=== PATIENT | female | born 1975 | race African-American/Black ===

== ENCOUNTER 2018-01-25 13:45 | Emergency (ER) | payer OTHER ==
--- NOTE | 2018-01-25 14:03 | PDOC ---
Rapid Medical Evaluation Time Seen by Provider: 01/25/18 13:59 Medical Evaluation: Allergies Allergy/AdvReac Type Severity Reaction Status Date / Time No Known Allergies Allergy Verified 11/01/12 20:50 01/25/18 14:00 I have performed a brief in-person evaluation of this patient. The patient presents with a chief complaint of: lower back pain Pertinent physical exam findings: TTP generalized lower back. I have ordered the following: urine The patient will proceed to the ED for further evaluation. Discharge Disposition - Diagnosis Back pain Qualifiers: Back pain location: low back pain - Referrals Referrals: Tad Dawn MD [Primary Care Provider] - - Patient Instructions - Post Discharge Activity
[2018-01-25 14:06] VITALS: BP 116/70; PULSE 77; TEMP 99.2; BMI 35.9
--- NOTE | 2018-01-25 14:36 | PDOC ---
History of Present Illness - General Chief Complaint: Pain Stated Complaint: BACK PAIN Time Seen by Provider: 01/25/18 13:59 - History of Present Illness Initial Comments: 01/25/18 14:33 42-year-old female without comorbidities presents for evaluation of lower back pain and left posterior lateral leg radicular symptoms. She denies loss of bowel bladder function or saddle paresthesia. No systemic symptoms. Past History - Past Medical History Allergies/Adverse Reactions: Allergies Allergy/AdvReac Type Severity Reaction Status Date / Time No Known Allergies Allergy Verified 01/25/18 14:00 Home Medications: Ambulatory Orders Cyclobenzaprine HCl [Flexeril 10 mg] 10 mg PO HS PRN #10 tablet 01/25/18 Methylprednisolone [Medrol Dose David] 4 mg PO ASDIR #21 tablet 01/25/18 COPD: No Other medical history: Chronic back pain - Reproductive History (#): 1 Para: 0 Cervical CA: No Dysfunctional Uterine Bleeding: No Ectopic : No Endometrial CA: No Polycystic Ovaries: No Therapeutic (s) & number: No Tubal Ligation: No Spontaneous : 1 - Suicide/Smoking/Psychosocial Hx Smoking Status: No Smoking History: Current some day smoker Have you smoked in the past 12 months: Yes Number of Cigarettes Smoked Daily: 0 Information on smoking cessation initiated: Yes 'Breaking Loose' booklet given: 01/25/18 Hx Alcohol Use: No Drug/Substance Use Hx: No Substance Use Type: Marijuana Review of Systems - Review of Systems Constitutional: No: Fever Musculoskeletal: Yes: Back Pain *Physical Exam - Vital Signs Last Vital Signs Temp Pulse Resp BP Pulse Ox 99.2 F 77 20 116/70 100 01/25/18 14:01 01/25/18 14:01 01/25/18 14:01 01/25/18 14:01 01/25/18 14:01 - Physical Exam Comments: 01/25/18 14:34 Lumbar spine skin color and temperature are normal range of motion is slightly decreased secondary to pain and stiffness. She has no midline tenderness mild left sided paralumbar musculature spasm and tenderness. 5 out of 5 strength in bilateral lower extremities without gross sensorimotor deficits should leg raise test positive on the left negative on the right. She's neurovascularly intact. Thighs and calves are soft and nontender. *DC/Admit/Observation/Transfer Diagnosis at time of Disposition: Lumbar radicular pain Back pain Qualifiers: Back pain location: low back pain - Discharge Dispostion Disposition: HOME Condition at time of disposition: Stable Decision to Admit order: No - Prescriptions Prescriptions: Cyclobenzaprine HCl [Flexeril 10 mg] 10 mg PO HS PRN #10 tablet PRN Reason: Muscle Spasms Methylprednisolone [Medrol Dose David] 4 mg PO ASDIR #21 tablet - Referrals Referrals: Tad Dawn MD [Primary Care Provider] - Neil Cobian MD [Staff Physician] - - Patient Instructions Printed Discharge Instructions: Lumbar Radiculopathy, DI for Lumbar Radiculopathy Additional Instructions: Please take the steroid pack as directed. No Advil Motrin Aleve or ibuprofen while on the steroid pack. The muscle relaxers one tablet before bedtime which will make you sleepy. Return to the emergency room should symptoms worsen or go unresolved and follow-up with spine surgery in 2-3 days for further evaluation and treatment options. - Post Discharge Activity
[2018-01-25 15:24] LABS: URINE APPEARANCE CLEAR; URINE BILIRUBIN NEGATIVE (<2.0 mg/dL); URINE COLOR YELLOW; URINE GLUCOSE (UA) NEGATIVE (NEGATIVE); URINE KETONE NEGATIVE (NEGATIVE); URINE LEUK ESTERASE NEGATIVE (NEGATIVE); URINE NITRITE NEGATIVE (NEGATIVE); URINE PROTEIN NEGATIVE (NEGATIVE); URINE UROBILINOGEN NEGATIVE mg/dL (0.2-1.0)
[2018-01-25 15:28] LABS: HCG,QUALITATIVE URINE NEGATIVE
== END 2018-01-25 14:42 | disposition home or self-care (01) ==
LOC: JERFT 13:45
DX: M54.16 Radiculopathy, lumbar region (principal); F17.210 Nicotine dependence, cigarettes, uncomplicated; G89.29 Other chronic pain
CPT/HCPCS: 81003; 84703; 87086; 99281-25

== ENCOUNTER 2018-02-27 09:42 | Emergency (ER) | payer OTHER ==
[2018-02-27 10:08] VITALS: BP 128/75; PULSE 76; TEMP 98.5; BMI 35.6
--- NOTE | 2018-02-27 11:01 | PDOC ---
History of Present Illness - General Chief Complaint: Cold Symptoms Stated Complaint: COLD SYMPTOMS Time Seen by Provider: 02/27/18 10:31 History Source: Patient Exam Limitations: Clinical Condition - History of Present Illness Initial Comments: 02/27/18 11:02 Patient with no significant past medication present with complaint of one-week history of dry cough, nasal congestion, runny nose and mucus production. Patient denies fever, chills. Patient denies any other symptoms Timing/Duration: 1 week Past History - Past Medical History Allergies/Adverse Reactions: Allergies Allergy/AdvReac Type Severity Reaction Status Date / Time No Known Allergies Allergy Verified 01/25/18 14:00 Home Medications: Ambulatory Orders Benzonatate [Tessalon Pearls -] 100 mg PO TID PRN #21 capsule 02/27/18 Ipratropium [place] 2 spray NS BID PRN #1 spray 02/27/18 Methylprednisolone [Medrol Dose David] 4 mg PO ASDIR #21 tablet 02/27/18 Asthma: Yes COPD: No Hypercholesterolemia: Yes Lung CA: No - Reproductive History (#): 1 Para: 0 Cervical CA: No Dysfunctional Uterine Bleeding: No Ectopic : No Endometrial CA: No Polycystic Ovaries: No Therapeutic (s) & number: No Tubal Ligation: No Spontaneous : 1 - Immunization History Immunization Up to Date: No - Suicide/Smoking/Psychosocial Hx Smoking Status: No Smoking History: Never smoked Have you smoked in the past 12 months: No Number of Cigarettes Smoked Daily: 0 Information on smoking cessation initiated: No 'Breaking Loose' booklet given: 01/25/18 Hx Alcohol Use: No Drug/Substance Use Hx: No Substance Use Type: Marijuana Review of Systems - Review of Systems Able to Perform ROS?: Yes Is the patient limited Maltese proficient: No Constitutional: No: Chills, Fever, Malaise HEENTM: Yes: Symptoms Reported, See HPI, Nose Congestion. No: Eye Pain, Blurred Vision, Tearing, Recent change in vision, Double Vision, Cataracts, Ear Pain, Ocular Prothesis, Ear Discharge, Nose Pain, Tinnitus, Nose Bleeding, Hearing Loss, Throat Pain, Throat Swelling, Mouth Pain, Dental Problems, Difficulty Swallowing, Mouth Swelling, Other Respiratory: Yes: Symptoms reported, See HPI, Cough. No: Orthopnea, Shortness of Breath, SOB with Exertion, SOB at Rest, Stridor, Wheezing, Productive cough, Hemoptysis, Other Cardiac (ROS): No: Symptoms Reported, See HPI, Chest Pain, Edema, Irregular Heart Rate, Lightheadedness, Palpitations, Syncope, Chest Tightness, Other ABD/GI: No: Symptoms Reported, See HPI, Abdominal Distended, Abd. Pain w/ defecation, Blood Streaked Bowels, Constipated, Diarrhea, Difficulty Swallowing , Nausea, Poor Appetite, Poor Fluid Intake, Rectal Bleeding, Vomiting, Indigestion, Abdominal cramping, Tarry Stools, Other All Other Systems: Reviewed and Negative *Physical Exam - Vital Signs Last Vital Signs Temp Pulse Resp BP Pulse Ox 98.5 F 76 18 128/75 98 02/27/18 10:06 02/27/18 10:06 02/27/18 10:06 02/27/18 10:06 02/27/18 10:06 - Physical Exam Comments: 02/27/18 11:04 GENERAL: Well developed, well nourished. Awake and alert. No acute distress. HEENT: Normocephalic, atraumatic. PERRLA, EOMI. No conjunctival pallor. Sclera are non-icteric. Moist mucous membranes. Oropharynx is clear. NECK: Supple. Full ROM. CARDIOVASCULAR: Regular rate and rhythm. No murmurs, rubs, or gallops. Distal pulses are 2+ and symmetric. PULMONARY: No evidence of respiratory distress. Lungs clear to auscultation bilaterally. No wheezing, rales or rhonchi. ABDOMINAL: Soft. Non-tender. Non-distended. No rebound or guarding. No organomegaly. Normoactive bowel sounds. MUSCULOSKELETAL Normal range of motion at all joints. EXTREMITIES: No cyanosis. No clubbing. No edema. No calf tenderness. SKIN: Warm and dry. Normal capillary refill. No rashes. No jaundice. NEUROLOGICAL: Alert, awake, appropriate. Gait is normal without ataxia. PSYCHIATRIC: Cooperative. Good eye contact. Appropriate mood General Appearance: Yes: Nourished, Appropriately Dressed. No: Apparent Distress Moderate Sedation - Procedure Monitoring Vital Signs: Procedure Monitoring Vital Signs Temperature 98.5 F 02/27/18 10:06 Pulse Rate 76 02/27/18 10:06 Respiratory Rate 18 02/27/18 10:06 Blood Pressure 128/75 02/27/18 10:06 O2 Sat by Pulse Oximetry (%) 98 02/27/18 10:06 Medical Decision Making - Medical Decision Making 02/27/18 11:04 Patient with no significant past medication present with complaint of one-week history of cough, runny nose, nasal congestion and mucus production. Patient afebrile. Clinical exam unremarkable. Symptoms likely viral URI. Patient is stable for discharge with outpatient management of URI with Tessalon Perles medical pack and nasal spray with PCP follow-up *DC/Admit/Observation/Transfer Diagnosis at time of Disposition: Cough URI (upper respiratory infection) Qualifiers: URI type: unspecified URI Qualified Code(s): J06.9 - Acute upper respiratory infection, unspecified - Discharge Dispostion Disposition: HOME Condition at time of disposition: Stable Decision to Admit order: No - Prescriptions Prescriptions: Benzonatate [Tessalon Pearls -] 100 mg PO TID PRN #21 capsule PRN Reason: Cough Ipratropium [place] 2 spray NS BID PRN #1 spray PRN Reason: nasal congestion Methylprednisolone [Medrol Dose David] 4 mg PO ASDIR #21 tablet - Referrals Referrals: Tad Dawn MD [Primary Care Provider] - - Patient Instructions Printed Discharge Instructions: DI for Viral Upper Respiratory Infection -- Adult Additional Instructions: Take medication as prescribed. increase fluid intake. Follow-up with PCP - Post Discharge Activity
== END 2018-02-27 11:07 | disposition home or self-care (01) ==
LOC: JER 09:42
DX: J06.9 Acute upper respiratory infection, unspecified (principal); R05 Cough; J45.909 Unspecified asthma, uncomplicated
CPT/HCPCS: 99281-25

== ENCOUNTER 2018-03-19 15:06 | Emergency (ER) | payer OTHER ==
[2018-03-19 15:12] VITALS: TEMP 98.2; BMI 35.9
[2018-03-19 16:36] LABS: URINE APPEARANCE CLEAR; URINE BILIRUBIN NEGATIVE (<2.0 mg/dL); URINE COLOR YELLOW; URINE GLUCOSE (UA) NEGATIVE (NEGATIVE); URINE KETONE 1+ (NEGATIVE); URINE LEUK ESTERASE NEGATIVE (NEGATIVE); URINE NITRITE NEGATIVE (NEGATIVE); URINE PROTEIN NEGATIVE (NEGATIVE); URINE UROBILINOGEN NEGATIVE mg/dL (0.2-1.0)
--- NOTE | 2018-03-19 17:02 | PDOC ---
History of Present Illness - General Chief Complaint: Pain Stated Complaint: PELVIC PAIN Time Seen by Provider: 03/19/18 16:00 History Source: Patient Exam Limitations: No Limitations - History of Present Illness Travel History: No Initial Comments: 03/19/18 16:49 42-year-old female presents to ED with complaints of 3 days of lower abdominal cramping and light brown spotting yesterday. Patient states had an IUD placed 3 months ago and has not had her menses and denies any vaginal discharge, urinary complaints, fever, chills or upper abdominal pain, or nausea. Timing/Duration: reports: constant Quality: reports: mild, cramping Abdominal Pain Onset Location: reports: suprapubic Pain Radiation: reports: no radiation Activities at Onset: reports: none Aggravating Factors: improves with: None Alleviating Factors: improves with: None Past History - Travel Traveled outside of the country in the last 30 days: No - Past Medical History Allergies/Adverse Reactions: Allergies Allergy/AdvReac Type Severity Reaction Status Date / Time No Known Allergies Allergy Verified 03/19/18 15:12 Home Medications: Ambulatory Orders Benzonatate [Tessalon Pearls -] 100 mg PO TID PRN #21 capsule 02/27/18 Ipratropium [place] 2 spray NS BID PRN #1 spray 02/27/18 Methylprednisolone [Medrol Dose David] 4 mg PO ASDIR #21 tablet 02/27/18 Tramadol HCl 50 mg PO BID PRN #10 tablet MDD 2 03/19/18 Asthma: Yes COPD: No Hypercholesterolemia: Yes Lung CA: No - Reproductive History (#): 3 Para: 3 Cervical CA: No Dysfunctional Uterine Bleeding: No Ectopic : No Endometrial CA: No Polycystic Ovaries: No Therapeutic (s) & number: No Tubal Ligation: No Spontaneous : 0 - Immunization History Immunization Up to Date: No - Suicide/Smoking/Psychosocial Hx Smoking Status: No Smoking History: Never smoked Have you smoked in the past 12 months: No Number of Cigarettes Smoked Daily: 0 Information on smoking cessation initiated: No 'Breaking Loose' booklet given: 01/25/18 Hx Alcohol Use: No Drug/Substance Use Hx: No Substance Use Type: Marijuana Patient Lives Alone: No Lives with/in: spouse/SO Review of Systems - Review of Systems Able to Perform ROS?: Yes Constitutional: No: Symptoms Reported HEENTM: No: Symptoms Reported Respiratory: No: Symptoms reported Cardiac (ROS): No: Symptoms Reported ABD/GI: Yes: Abdominal cramping : Yes: Discharge Musculoskeletal: No: Symptoms Reported Integumentary: No: Symptoms Reported Neurological: No: Symptoms reported *Physical Exam - Vital Signs Last Vital Signs Temp Pulse Resp BP Pulse Ox 98.2 F 80 18 106/69 100 03/19/18 15:09 03/19/18 15:09 03/19/18 15:09 03/19/18 15:09 03/19/18 15:09 - Physical Exam General Appearance: Yes: Nourished, Appropriately Dressed. No: Apparent Distress HEENT: positive: EOMI. negative: Pale Conjunctivae Neck: positive: Normal Thyroid, Supple Female Pelvic Exam: positive: normal external exam. negative: discharge, vaginal bleeding Gastrointestinal/Abdominal: positive: Normal Bowel Sounds, Soft, Tenderness ( mild mid suprapubic). negative: Distended, Hernia, Mass Musculoskeletal: negative: CVA Tenderness Integumentary: positive: Normal Color, Warm, Moist Neurologic: positive: Motor Strength 5/5 (ambulatory) Moderate Sedation - Procedure Monitoring Vital Signs: Procedure Monitoring Vital Signs Temperature 98.2 F 03/19/18 15:09 Pulse Rate 80 03/19/18 15:09 Respiratory Rate 18 03/19/18 15:09 Blood Pressure 106/69 03/19/18 15:09 O2 Sat by Pulse Oximetry (%) 100 03/19/18 15:09 ED Treatment Course - ADDITIONAL ORDERS Additional order review: Laboratory Results 03/19/18 16:20 Urine Color Yellow Urine Appearance Clear Urine pH 5.0 Ur Specific [place] 1.026 Urine Protein Negative Urine Glucose (UA) Negative Urine Ketones 1+ H Urine Blood Negative Urine Nitrite Negative Urine Bilirubin Negative Urine Urobilinogen Negative Ur Leukocyte Esterase Negative - RADIOLOGY Radiology Studies Ordered: Category Date Time Status PELVIC / BLADDER US [US] Stat Ultrasound 03/19/18 16:04 Ordered TRANSVAGINAL ULTRASOUND US [US] Stat Ultrasound 03/19/18 16:04 Ordered Medical Decision Making - Medical Decision Making 03/19/18 17:09 Chief complaint: Suprapubic cramping brownish spotting for the past 3 days. Exam. Mild mid suprapubic tenderness no left or right suprapubic tenderness. No discharge. Plan: Urinalysis urine culture urine ultrasound to check for IUD placement since recently placed 03/19/18 17:47 Laboratory Tests 03/19/18 03/19/18 16:20 16:20 Urine Ketones 1+ H Urine Nitrite Negative Urine Bilirubin Negative Urine Urobilinogen Negative Ur Leukocyte Esterase Negative Urine HCG, Qual Negative 03/19/18 18:50 Ultrasound negative for acute findings. IUD shows proper placement patient will be given tramadol for discomfort and tramadol for discharge. Patient understands if symptoms continue greater than 5 days to return to the nearest emergency room.. *DC/Admit/Observation/Transfer Diagnosis at time of Disposition: Pelvic pain - Discharge Dispostion Disposition: HOME Condition at time of disposition: Good - Prescriptions Prescriptions: Tramadol HCl 50 mg PO BID PRN #10 tablet MDD 2 PRN Reason: Pain - Referrals - Patient Instructions Printed Discharge Instructions: DI for Pelvic Pain Additional Instructions: Please continue to observe your symptoms and may take tramadol for discomfort. If symptoms continue over the next 5 days please consider following up with your [facility] and/or return to the nearest emergency room. - Post Discharge Activity
[2018-03-19] MEDS ORDERED: traMADol HCL 50 MG TABLET PO ONE (18:46)
[2018-03-19] MEDS ORDERED: traMADol HCL 50 MG TABLET ONE (18:58)
[2018-03-19 19:07] VITALS: BP 132/77; PULSE 77
== END 2018-03-19 19:06 | disposition home or self-care (01) ==
LOC: JER 15:06
DX: R10.2 Pelvic and perineal pain (principal); J45.909 Unspecified asthma, uncomplicated; E78.00 Pure hypercholesterolemia, unspecified
CPT/HCPCS: 76830-TC; 76856-TC; 81003; 84703; 99283-25

== ENCOUNTER 2019-04-24 14:44 | Emergency (ER) | payer OTHER ==
[2019-04-24] MEDS ORDERED: ASPIRIN 81 MG CHEWABLE TABLETS PO ONE (14:54)
[2019-04-24 14:55] VITALS: BMI 31.4
--- NOTE | 2019-04-24 14:55 | PDOC ---
Rapid Medical Evaluation Chief Complaint: Chest Pain Time Seen by Provider: 04/24/19 14:50 Medical Evaluation: Allergies Allergy/AdvReac Type Severity Reaction Status Date / Time No Known Allergies Allergy Verified 03/19/18 15:12 04/24/19 14:50 Pt presents for evaluation of chest pain. Pt states that she had cardiac stents placed at [facility] last week in the proximal and distal LAD. [employer] Att[employer] Dr. Mclean Exam: RRR, S1 S2 present, No m/r/g. Lungs CTAB Orders: Labs, EKG Pt to proceed to the ER for further evaluation Discharge Disposition - Diagnosis Chest pain Qualifiers: Chest pain type: unspecified Qualified Code(s): R07.9 - Chest pain, unspecified - Referrals - Patient Instructions - Post Discharge Activity
[2019-04-24] MEDS ORDERED: ASPIRIN 81 MG CHEWABLE TABLETS ONE (15:22)
[2019-04-24 15:46] LABS: BASO % 0.6 % (0-2.0); EOS % 1.3 % (0-4.5); HEMATOCRIT 41.9 % (32.4-45.2); HEMOGLOBIN 14.2 GM/dL (10.7-15.3); LYMPH % 24.3 % (8-40); MCH 30.2 pg (25.7-33.7); MEAN PLT VOLUME 7.9 fl (7.5-11.1); MONO % 8.1 % (3.8-10.2); NEUT % 65.7 % (42.8-82.8); PLATELET COUNT 361 K/MM3 (134-434); RDW 13.9 % (11.6-15.6); WHITE BLOOD COUNT 8.4 K/mm3 (4.0-10.0)
--- NOTE | 2019-04-24 16:03 | PDOC ---
History of Present Illness - General Chief Complaint: Chest Pain Stated Complaint: CHEST PAIN Time Seen by Provider: 04/24/19 14:50 History Source: Patient Exam Limitations: No Limitations Past History - Past Medical History Allergies/Adverse Reactions: Allergies Allergy/AdvReac Type Severity Reaction Status Date / Time No Known Allergies Allergy Verified 03/19/18 15:12 Home Medications: Ambulatory Orders Benzonatate [Tessalon Pearls -] 100 mg PO TID PRN #21 capsule 02/27/18 Ipratropium [place] 2 spray NS BID PRN #1 spray 02/27/18 Methylprednisolone [Medrol Dose David] 4 mg PO ASDIR #21 tablet 02/27/18 Tramadol HCl 50 mg PO BID PRN #10 tablet MDD 2 03/19/18 Asthma: Yes Cardiac Disorders: Yes COPD: No Hypercholesterolemia: Yes Lung CA: No - Surgical History Cardiac Surgery: Yes (prox & mid LAD stent 2019) - Reproductive History (#): 3 Para: 3 Cervical CA: No Dysfunctional Uterine Bleeding: No Ectopic : No Endometrial CA: No Polycystic Ovaries: No Therapeutic (s) & number: No Tubal Ligation: No Spontaneous : 0 - Immunization History Immunization Up to Date: No - Psycho Social/Smoking Cessation Hx Smoking Status: No Smoking History: Former smoker Have you smoked in the past 12 months: No Number of Cigarettes Smoked Daily: 0 Information on smoking cessation initiated: No 'Breaking Loose' booklet given: 01/25/18 Hx Alcohol Use: No Drug/Substance Use Hx: No Substance Use Type: Marijuana *Physical Exam - Vital Signs Last Vital Signs Temp Pulse Resp BP Pulse Ox 98.5 F 68 18 121/76 99 04/24/19 14:52 04/24/19 14:52 04/24/19 14:52 04/24/19 14:52 04/24/19 14:52 ED Treatment Course - LABORATORY CBC & Chemistry Diagram: 04/24/19 15:24 04/24/19 15:24 - ADDITIONAL ORDERS Additional order review: 04/24/19 15:24 RBC 4.70 MCV 89.0 MCHC 34.0 RDW 13.9 MPV 7.9 D Neutrophils % 65.7 D Lymphocytes % 24.3 D Monocytes % 8.1 Eosinophils % 1.3 Basophils % 0.6 Discharge - Discharge Information Clinical Impression/Diagnosis: Chest pain Qualifiers: Chest pain type: unspecified Qualified Code(s): R07.9 - Chest pain, unspecified - Follow up/Referral - Patient Discharge Instructions - Post Discharge Activity
[2019-04-24 16:08] LABS: INR 1.04 (0.83-1.09); PROTHROMBIN TIME (PATIENT) 12.3 SEC (9.7-13.0)
[2019-04-24 16:11] LABS: ACTIVATED PTT 36.9 SECONDS (25.2-36.5)
[2019-04-24 16:20] LABS: ALBUMIN 4.2 g/dl (3.4-5.0); BILIRUBIN,TOTAL 0.3 mg/dL (0.2-1); BLOOD UREA NITROGEN 4.6 mg/dL (7-18); CALCIUM 8.8 mg/dL (8.5-10.1); CREATININE 0.7 mg/dL (0.55-1.3); MAGNESIUM 2.5 mg/dL (1.8-2.4); POTASSIUM 3.6 mmol/L (3.5-5.1); TOT PROT 7.2 g/dl (6.4-8.2)
--- NOTE | 2019-04-24 16:29 | PDOC ---
Attending Attestation - Resident Resident Name: Riaz Campos - ED Attending Attestation I have performed the following: I have examined & evaluated the patient, The case was reviewed & discussed with the resident, I agree w/resident's findings & plan - HPI HPI: 04/24/19 16:29 43y/o F previously healthy but s/p LAD stent x2 about 3wks ago at [facility] in the setting of preceding near syncopal episodes leading to abnormal holter/ stress, presents now with atypical chest pain sxs since her cath. Pt has been seen in ED 3x since her cath and once in waist presser's office, workups have been negative, including loop recorder evals showing no arrhythia. pt presents now again with chest/back/b/l arm pain since last night. No exertional symptoms, no fevers or chills or cough, no leg swelling. Patient has been compliant with her aspirin and Brilinta, admits to being very anxious since her catheterization, no preceding anxiety. No episodes of lightheadedness or near syncope. - Physicial Exam PE: 04/24/19 16:32 Vital signs normal, afebrile Alert, seated comfortably in stretcher in no acute distress, became tearful while telling the story, no acute psych issues No JVD Heart is regular, no murmur. Lungs are clear. Abdomen benign. No edema or calf tenderness - Medical Decision Making 04/24/19 16:33 43-year-old female previously healthy now status post LAD stent x2 presents with atypical chest pain syndrome essentially since her catheterizations, negative work-ups both in previous emergency department visits and in cardiology office visit, presents now with same atypical syndrome since last night. Patient admittedly anxious, and despite her diagnosed and treated disease, presentation does seem atypical and, most importantly, not similar to precatheterization symptoms. Known disease, but overall atypical for recurrent ACS. No clear PE risk factors, no hypoxia or tachycardia. Check labs including troponin x2 EKG, chest x-ray Given full dose aspirin Case discussed with patient's waist presser at [facility], feels this is not cardiac chest pain, and the patient can be discharged to outpatient follow-up. Reviewed above, patient agrees with plan and is simply seeking reassurance about her current symptoms, has follow-up with her waist presser and understands return criteria. Heart Score/ECG Review #1 ECG reviewed & interpreted by me at: 14:51 General ECG Interpretation: Sinus Rhythm, Normal Rate (54), Normal Intervals ( qtc 434), No acute ischemic changes
--- NOTE | 2019-04-24 16:35 | PDOC ---
History of Present Illness - General Chief Complaint: Chest Pain Stated Complaint: CHEST PAIN Time Seen by Provider: 04/24/19 14:50 History Source: Patient Exam Limitations: No Limitations - History of Present Illness Initial Comments: 04/24/19 16:05 43 yo female pmh with runs of V tach, Cardiac stents (prox and mid LAD with loop recorder, Dr. Whitfield and Dr. Delgado) placed at [facility] 04/12/2019 presents to the ED with CP. Pt states the CP is intermittent, woke her up out of sleep yesterday, described as sharp/pressure like with associated nausea without vomiting or diaphoresis. Pain is worse on exertion. Pain is reproducible with palpation. Denies recent travel, calf tenderness, F/C, Past History - Past Medical History Allergies/Adverse Reactions: Allergies Allergy/AdvReac Type Severity Reaction Status Date / Time No Known Allergies Allergy Verified 03/19/18 15:12 Home Medications: Ambulatory Orders Benzonatate [Tessalon Pearls -] 100 mg PO TID PRN #21 capsule 02/27/18 Ipratropium Depauw 2 spray NS BID PRN #1 spray 02/27/18 Methylprednisolone [Medrol Dose David] 4 mg PO ASDIR #21 tablet 02/27/18 Tramadol HCl 50 mg PO BID PRN #10 tablet MDD 2 03/19/18 Asthma: Yes Cardiac Disorders: Yes COPD: No Hypercholesterolemia: Yes Lung CA: No - Surgical History Cardiac Surgery: Yes (prox & mid LAD stent 2019) - Reproductive History (#): 3 Para: 3 Cervical CA: No Dysfunctional Uterine Bleeding: No Ectopic : No Endometrial CA: No Polycystic Ovaries: No Therapeutic (s) & number: No Tubal Ligation: No Spontaneous : 0 - Immunization History Immunization Up to Date: No - Psycho Social/Smoking Cessation Hx Smoking Status: No Smoking History: Former smoker Have you smoked in the past 12 months: No Number of Cigarettes Smoked Daily: 0 Information on smoking cessation initiated: No 'Breaking Loose' booklet given: 01/25/18 Hx Alcohol Use: No Drug/Substance Use Hx: No Substance Use Type: Marijuana Review of Systems - Review of Systems Constitutional: No: Chills, Fever Cardiac (ROS): Yes: Chest Pain. No: Edema ABD/GI: No: Constipated, Diarrhea, Nausea, Vomiting : No: Burning, Dysuria, Discharge, Frequency Musculoskeletal: No: Back Pain Neurological: No: Headache *Physical Exam - Vital Signs Last Vital Signs Temp Pulse Resp BP Pulse Ox 98.5 F 68 18 121/76 99 04/24/19 14:52 04/24/19 14:52 04/24/19 14:52 04/24/19 14:52 04/24/19 14:52 - Physical Exam General Appearance: Yes: Nourished, Appropriately Dressed. No: Apparent Distress HEENT: positive: EOMI Neck: positive: Supple. negative: Carotid bruit, Tender midline Respiratory/Chest: positive: Lungs Clear, Normal Breath Sounds. negative: Respiratory Distress, Accessory Muscle Use, Rapid RR, Crackles, Rales, Rhonchi, Stridor, Wheezing Cardiovascular: positive: Regular Rhythm, Regular Rate, S1, S2. negative: Edema , JVD, Murmur Vascular Pulses: Dorsalis-Pedis (R): 4+, Doralis-Pedis (L): 4+ Gastrointestinal/Abdominal: positive: Flat, Soft. negative: Organomegaly, Pulsatile Mass Musculoskeletal: negative: CVA Tenderness Extremity: positive: Normal Capillary Refill, Normal Inspection, Normal Range of Motion Integumentary: positive: Normal Color, Dry, Warm Neurologic: positive: Fully Oriented, Alert, Normal Mood/Affect, Normal Response ED Treatment Course - LABORATORY CBC & Chemistry Diagram: 04/24/19 15:24 04/24/19 15:24 - ADDITIONAL ORDERS Additional order review: 04/24/19 15:24 RBC 4.70 MCV 89.0 MCHC 34.0 RDW 13.9 MPV 7.9 D Neutrophils % 65.7 D Lymphocytes % 24.3 D Monocytes % 8.1 Eosinophils % 1.3 Basophils % 0.6 - Medications Given in the ED: ED Medications Discontinued Medications Generic Name Dose Route Start Last Admin Trade Name Freq PRN Reason Stop Dose Admin Aspirin 162 mg 04/24/19 14:54 04/24/19 16:03 Asa - PO 04/24/19 14:55 Not Given ONCE ONE Medical Decision Making - Medical Decision Making 43 yo female pmh with runs of V tach, Cardiac stents (prox and mid LAD with loop recorder, Dr. Whitfield and Dr. Delgado) placed at [facility] 04/12/2019 presents to the ED with CP. Pt states the CP is intermittent, woke her up out of sleep yesterday, described as sharp/pressure like with associated nausea without vomiting or diaphoresis. Pain is worse on exertion. Pain is reproducible with palpation. Denies recent travel, calf tenderness, F/C, X2 neg Discussed case with Pt primary Co Op, Dr. Vickers, states pt has been to [facility] multiple times after the stent placement complaining of similar CP, states Loop recorder has been negative for any arrhythmias or ischemic changes with multiple neg cardiac work ups. States pt very anxious and if trops are neg can follow up in clinic (states his nurse will contact patient for an appointment). Also discussed case with DESIGN ENGINEERING TECHNICIAN Farnaz (Works under Dr. Delgado and Dr. Coffman), DESIGN ENGINEERING TECHNICIAN interrogated the Loop recorder after the stated CP, states no arrhythmias vitals WNL NAD, well appearing EKG shows no changes from prior. NSR without signs of ischemia Trop X2 neg, pt has no sig complaints of CP at this time and is safe for DC home with PCP and Cardiology F/U as stated by Co Op Discharge - Discharge Information Problems reviewed: Yes Clinical Impression/Diagnosis: Chest pain Qualifiers: Chest pain type: unspecified Qualified Code(s): R07.9 - Chest pain, unspecified Condition: Improved Disposition: HOME - Admission No - Follow up/Referral Referrals: Aly Hoffman MD [Primary Care Provider] - - Patient Discharge Instructions Patient Printed Discharge Instructions: DI for Atypical Chest Pain, DI for Chest Pain Additional Instructions: Please follow up with your Primary Doctor and Co Op as soon as possible. Your Co Op is aware of your visit to the ED. Take your lab results to your Primary Team. Continue taking your medications as prescribed. Return to the ER for new or concerning symptoms. Thank you - Post Discharge Activity
[2019-04-24] MEDS ORDERED: ASPIRIN COATED 81 MG TABLET.EC PO SCH (16:45)
[2019-04-24] MEDS ORDERED: ACETAMINOPHEN 500 MG TABLET (FP) PO ONE (17:53)
[2019-04-24] MEDS ORDERED: ACETAMINOPHEN 325 MG TABLET (FP) ONE (17:58)
[2019-04-24 20:40] VITALS: BP 120/77; PULSE 77; TEMP 98.1
[2019-04-24] MEDS ORDERED: ONDANSETRON 4 MG/2 ML VIAL IVPUSH ONE (20:46)
[2019-04-24] MEDS ORDERED: ONDANSETRON 4 MG/2 ML VIAL ONE (20:56)
--- NOTE | 2019-04-25 10:43 | EKG ---
Test Reason : Blood Pressure : / mmHG Vent. Rate : 054 BPM Atrial Rate : 054 BPM P-R Int : 158 ms QRS Dur : 086 ms QT Int : 458 ms P-R-T Axes : 029 019 022 degrees QTc Int : 434 ms SINUS BRADYCARDIA WITH SINUS ARRHYTHMIA OTHERWISE NORMAL ECG NO PREVIOUS ECGS AVAILABLE Confirmed by Bobby Box MD ([id number]) on 04/25/2019 10:43:36 AM Referred By: Confirmed By:Bobby Box MD
== END 2019-04-24 21:13 | disposition home or self-care (01) ==
LOC: JER 14:44
DX: R07.9 Chest pain, unspecified (principal); I25.10 Atherosclerotic heart disease of native coronary artery without angina pectoris; Z95.5 Presence of coronary angioplasty implant and graft; E78.00 Pure hypercholesterolemia, unspecified; J45.909 Unspecified asthma, uncomplicated
CPT/HCPCS: 36415; 71046-TC-FY; 80053; 82550; 83735; 84484; 85025; 85610; 85730; 93005; 93010; 99285-25

== ENCOUNTER 2022-09-25 08:26 | Emergency (ER) | payer OTHER ==
[2022-09-25 08:34] VITALS: BP 122/68; PULSE 73; RESP 18; TEMP 97.7; BMI 35.6
[2022-09-25 10:09] LABS: BASO % 0.5 % (0-2.0); EOS % 3.7 % (0-4.5); HEMATOCRIT 39.8 % (32.4-45.2); LYMPH % 35.3 % (8-40); MCHC 32.7 g/dl (32.0-36.0); MEAN CELL VOLUME 88.7 fl (80-96); MEAN PLT VOLUME 8.1 fl (7.5-11.1); MONO % 8.9 % (3.8-10.2); NEUT % 51.6 % (42.8-82.8); PLATELET COUNT 225 10^3/uL (134-434); RBC 4.49 M/mm3 (3.60-5.2); RDW 13.9 % (11.6-15.6); WHITE BLOOD COUNT 4.9 K/mm3 (4.0-10.0)
[2022-09-25 10:34] LABS: POTASSIUM 4.3 mmol/L (3.5-5.1)
[2022-09-25 10:35] LABS: EPI CELLS 31 /uL (0-25.1); HYALINE CASTS 0 /uL (0-3.1); URINE APPEARANCE CLOUDY; URINE BACTERIA 129 /uL (0-1359); URINE BILIRUBIN NEGATIVE (NEGATIVE); URINE COLOR ORANGE; URINE GLUCOSE (UA) NEGATIVE (NEGATIVE); URINE KETONE NEGATIVE (NEGATIVE); URINE LEUK ESTERASE TRACE (NEGATIVE); URINE NITRITE NEGATIVE (NEGATIVE); URINE PROTEIN TRACE (NEGATIVE); URINE RBC 952 /uL (0-23.9); URINE UROBILINOGEN 0.2 mg/dL (0.2-1.0); URINE WBC 15 /uL (0-25.8)
[2022-09-25 10:36] LABS: ALBUMIN 3.4 g/dl (3.4-5.0)
[2022-09-25 10:39] LABS: CREATININE 0.6 mg/dL (0.55-1.3)
[2022-09-25 10:41] LABS: BILIRUBIN,TOTAL 0.3 mg/dL (0.2-1); TOT PROT 6.1 g/dl (6.4-8.2)
== END 2022-09-25 10:52 | disposition home or self-care (01) ==
LOC: JER 08:26
DX: N93.9 Abnormal uterine and vaginal bleeding, unspecified (principal)
CPT/HCPCS: 36415; 80053; 81003; 84702; 84703; 85025; 86850; 86900; 86901; 87086; 99283-25

== ENCOUNTER 2024-07-31 16:33 | Emergency (ER) | payer OTHER ==
[2024-07-31 16:44] VITALS: BP 119/65; PULSE 63; RESP 18; TEMP 98.1; BMI 34.7
[2024-07-31] MEDS ORDERED: IBUPROFEN 600 MG TABLET (FP) PO ONE (17:20)
[2024-07-31] MEDS: IBUPROFEN 600 MG TABLET (FP) PO ONE (17:22)
[2024-07-31] MEDS ORDERED: KETOROLAC TROMETHAMINE 30 MG/1 ML VIAL IM ONE (19:53)
[2024-07-31] MEDS ORDERED: KETOROLAC TROMETHAMINE 15 MG/ML VIAL ONE (19:56)
== END 2024-07-31 19:44 | disposition home or self-care (01) ==
LOC: JERFT 16:33
DX: M25.562 Pain in left knee (principal); W50.1XXA Accidental kick by another person, initial encounter; Y99.0 Civilian activity done for income or pay
CPT/HCPCS: 73562-TC-LT-FY; 99283-25